=== PATIENT | female | born 1990 | race Caucasian/White ===

== ENCOUNTER 2016-04-08 21:06 | Emergency (ER) | payer OTHER ==
[2016-04-08] MEDS ORDERED: ONDANSETRON 4 MG ORAL DISINTEGRATING TAB (S0181) As Ordered ONE (23:16)
[2016-04-08] MEDS ORDERED: MECLIZINE 12.5 MG TAB As Ordered ONE (23:16)
[2016-04-08] MEDS ORDERED: diphenhydrAMINE 25 MG CAP As Ordered ONE (23:16)
[2016-04-08] MEDS ORDERED: NORCO 5/325MG TABLET (BULK) As Ordered ONE (23:16)
[2016-04-08] MEDS ORDERED: TETRACAINE 0.5% OPHTH SOLN 2 ML As Ordered ONE (23:33)
--- NOTE | 2016-04-09 00:55 | EDDOCDS ---
Physician Documentation [facility] Name: Eliana Tapia Age: 25 yrs Sex: Female : 1990 Arrival Date: 04/08/2016 Time: 21:06 Bed TR8 Private MD: NO PRIMARY PHYSICIAN, . Disposition: 04/08/16 23:09 Discharged to Home/Self Care. Impression: Acute frontal sinusitis. - Condition is Stable. - Discharge Instructions: Sinus Headache, Sinusitis, Adult, Vertigo. - Prescriptions for Meclizine 25 mg Oral Tablet - take 1 tablet by ORAL route every 8 hours As needed; 30 tablet. [place] 5- 325 mg Oral Tablet - take 1 tablet by ORAL route every 6 hours As needed MDD: 4 tabs; 12 tablet. ZOFRAN ODT 4 mg - dissolve 1 tablet by ORAL route 4 times per day As needed do not chew, do not swallow whole; 10 tablet. - Medication Reconciliation, Local Pharmacy Hours form. - Follow up: Private Physician; When: Call to arrange an appointment; Reason: Recheck today's complaints, Continuance of care. - Problem is new. - Symptoms are unchanged. Historical: - Allergies: No known drug Allergies; - Home Meds: 1. Augmentin 875-125 mg Oral tab 1 tab every 12 hours (Last dose: 04/08/2016 18:00) 2. Depo-Provera IM 3. Flonase 50 mcg/actuation Nasal spsn 1 spray once daily (Last dose: 04/08/2016) 4. Cough Syrup oral oral - PMHx: none; - PSHx: Tonsillectomy; Cholecystectomy; [place] teeth extractions; - Social history: Smoking status: Patient uses tobacco products, light tobacco smoker. No barriers to communication noted, The patient speaks fluent Divehi, Speaks appropriately for age. - Family history: Not pertinent. - : The pt / caregiver states he / she is not on anticoagulants. Home medication list is obtained from the patient. - Exposure Risk Screening:: None identified. 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 5 in. (165.10 cm) (R); 23:48 BP 150 / 84; Pulse 83; Resp 18; Temp 99.4; Pulse Ox 100% ; Pain 10/10; jlm 21:07 Body Mass Index 39.94 (108.86 kg, 165.10 cm) dd6 MDM: 23:03 Financial registration complete. kf3 23:04 [facility] Payment Agreement was scanned into [employer] and attached to record. kf3 23:05 HYDROcodone-acetaminophen 4 pack- 5 mg-325 mg 1 packets PO Per package directions; mo1 Dispense with patient. 1 po q4h prn for pain ordered. 23:06 diphenhydrAMINE 25 mg PO once ordered. mo1 23:06 Meclizine 25 mg PO once ordered. mo1 23:06 Ondansetron 4 mg PO once ordered. mo1 23:11 ED course: of patient extremely disrespectful to myself during exam of patient. mo1 pt's questioning care and plan of treatment as i was discussing with patient. 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 pt is stable, pt with obvious sinusitis and right AOM with likely associated vertigo . 23:43 ED course: Pt's intraocular pressure was 16. 'Swinging flashlight' test response was cs11 normal in each eye indicating no evidence of optic neuritis.. Administered Medications: 23:59 Drug: HYDROcodone-acetaminophen 4 pack- 1 packets [hydrocodone 5 mg-acetaminophen 325 cz mg tablet (1 tabs)] {Co-Signature: kmg1 (Vidhi Ferris RN).} Route: PO; 23:59 Drug: diphenhydrAMINE 25 mg [diphenhydramine 25 mg capsule (1 caps)] Route: PO; cz 23:59 Drug: Meclizine 25 mg [meclizine 12.5 mg tablet (2 tabs)] Route: PO; cz 23:59 Drug: Ondansetron 4 mg [ondansetron HCl 4 mg tablet (1 tabs)] Route: PO; cz Signatures: Vidhi Ferris RN RN km Farzad Braswell RN RN cz Saul Kee, Reg Reg kf3 Jonas Ko DO DO cs11 Jose Lancaster PA PA mo1 Vidhi Ferris RN kmg1 The chart was reviewed and I authenticate all verbal orders and agree with the evaluation and treatment provided.Attachments: 23:04 [facility] Payment Agreement kf3 MTDD
--- NOTE | 2016-04-09 00:55 | EDDOCDS ---
Nurse's Notes [facility] Name: Eliana Tapia Age: 25 yrs Sex: Female : 1990 Arrival Date: 04/08/2016 Time: 21:06 Bed TR8 Private MD: NO PRIMARY PHYSICIAN, . Diagnosis: Acute frontal sinusitis Presentation: 04/08 21:21 Presenting complaint: Patient states: Was seen yesterday for facial pressure. Was put kmg1 on Augmentin for early sinus infection. Right side of face severe pain. Nausea, dry heaves. Adult Sepsis Screening: The patient does not have new or worsening altered mentation. Patient's respiratory rate is less than 22. Systolic blood pressure is greater than 100. Patient has a qSOFA score of 0- Negative Sepsis Screen. Suicide/Homicide risk assessment- the patient denies having any suicidal and/or homicidal ideations and does not present with any other emotional, behavioral or mental health complaints. Status: Patient is not a production service manager or dependent. Transition of care: patient was not received from another setting of care. 21:21 Acuity: MARIBEL Level 4 [facility] 21:21 Method Of Arrival: Walkin/Carried/Asstd [facility] Triage Assessment: 21:25 General: Appears uncomfortable, Behavior is crying. Pain: Location: right eye, right kmg1 cheek, right ear, right congregational and right jaw Pain currently is 10 out of 10 on a pain scale. Quality of pain is described as throbbing. EENT: Reports pain in right eye, right cheek, right ear, right congregational and right jaw. 21:25 Pt Declines HIV testing. [facility] LIBRARY AIDE: 21:25 LMP N/A - Depo [facility] Historical: - Allergies: No known drug Allergies; - Home Meds: 1. Augmentin 875-125 mg Oral tab 1 tab every 12 hours (Last dose: 04/08/2016 18:00) 2. Depo-Provera IM 3. Flonase 50 mcg/actuation Nasal spsn 1 spray once daily (Last dose: 04/08/2016) 4. Cough Syrup oral oral - PMHx: none; - PSHx: Tonsillectomy; Cholecystectomy; [place] teeth extractions; - Social history: Smoking status: Patient uses tobacco products, light tobacco smoker. No barriers to communication noted, The patient speaks fluent Frisian, Speaks appropriately for age. - Family history: Not pertinent. - : The pt / caregiver states he / she is not on anticoagulants. Home medication list is obtained from the patient. - Exposure Risk Screening:: None identified. Screenin/16 00:53 Screening information is obtained from the patient. Fall risk: No risks identified. cz Assistance ADL's: requires no assistance with activities of daily living. Abuse/DV Screen: The patient / caregiver reports he/she is: not in a situation that causes fear, pain or injury. Nutritional screening: No deficits noted. home support is adequate. Assessment: 04/08 23:29 General: Pt and SO requesting to speak with nursing debone supervisor, this marketing writer notified sls1 nursing debone supervisor, and went into speak with them regarding notify debone supervisor. PT S/O stated he would speak with this marketing writer because " you are one of the good ones" stated they waited to be seen for a long time, and watched " a lot of other people walk in not in distress while she was crying her eyes out" reports being placed in triage room and waited even longer, states " not offered a blanket", states provider came into evaluate pt and did not listen to concerns over eye, states " concerned that pt may have same condition as sister who required a shunt". Chief Service Dispatcher asked what could be done to make the situation better and they asked to have eyes evaluated, pt moved to eye room and notified Dr Ko of situation, Dr Ko into evaluate pt. . Vital Signs: 21:07 BP 147 / 89; Pulse 109; Resp 18 S; Temp 98.5(O); Pulse Ox 100% on R/A; Weight 108.86 kg dd6 (M); Height 5 ft. 5 in. (165.10 cm) (R); 23:48 BP 150 / 84; Pulse 83; Resp 18; Temp 99.4; Pulse Ox 100% ; Pain 10/10; jlm 21:07 Body Mass Index 39.94 (108.86 kg, 165.10 cm) dd6 Vitals: 21:07 Log In Time: April 08, 2016 at 21:05. dd6 ED Course: 21:07 Patient visited by Hiro Chakraborty, [place]. dd6 21:07 NO PRIMARY PHYSICIAN, . is Private Physician. dd6 21:07 Patient moved to Waiting dd6 21:09 Patient moved to Pre RCE dd6 21:23 Triage Initiated kmg1 22:14 Patient moved to Triage 1 ar3 22:37 Jose Lancaster PA is PHCP. mo1 22:37 Jonas Ko DO is Attending Physician. mo1 22:51 Patient visited by Jose Lancaster PA. mo1 22:55 Patient name changed from Eliana\\S\\S\\S\\Regina\\S\\ to Eliana\\S\\Allegra\\S\\Regina. EDMS 23:04 [facility] Payment Agreement was scanned into [employer] and attached to record. kf3 23:16 Patient moved to PD2 / 27 jlm 23:24 Patient moved to I10 / 23 sls1 23:49 Patient visited by Shayna Davis, Molding Line Operator. jlm 04/09 00:05 Patient moved to TR8 cz 00:53 The patient / caregiver is instructed regarding the plan of care and ED course. cz 00:53 No IV's were initiated during this patient's visit. No procedures done that require cz assistance. Administered Medications: 04/08 23:59 Drug: HYDROcodone-acetaminophen 4 pack- 1 packets [hydrocodone 5 mg-acetaminophen 325 cz mg tablet (1 tabs)] {Co-Signature: kmg1 (Vidhi Ferris RN).} Route: PO; 23:59 Drug: diphenhydrAMINE 25 mg [diphenhydramine 25 mg capsule (1 caps)] Route: PO; cz 23:59 Drug: Meclizine 25 mg [meclizine 12.5 mg tablet (2 tabs)] Route: PO; cz 23:59 Drug: Ondansetron 4 mg [ondansetron HCl 4 mg tablet (1 tabs)] Route: PO; cz Order Results: There are currently no results for this order. Outcome: 23:09 Discharge ordered by Provider. mo1 04/09 00:52 Discharge Assessment: Patient awake, alert and oriented x 3. No cognitive and/or cz functional deficits noted. Patient verbalized understanding of disposition instructions. patient administered narcotics - no. The following High Risk Discharge criteria are identified: None. Discharged to home ambulatory, with significant other. Condition: stable. Discharge instructions given to patient, Instructed on discharge instructions, follow up and referral plans. medication usage, Demonstrated understanding of instructions, medications, Pt was receptive of discharge instructions/ teaching. Prescriptions given X 3. No special radiology studies were completed. Property :Personal belongings accompany Pt. 00:54 Patient left the ED. rae Signatures: Dispatcher [employer] EDMS Vidhi Ferris, RN RN kmg1 Farzad Braswell RN RN cz Saul Kee, Reg Reg kf3 Hiro Chakraborty, DIVER TENDER DIVER TENDER dd6 Ángela Busby, DIVER TENDER DIVER TENDER ar3 Alina Monroy, RN RN sls1 Jose Lancaster PA PA mo1 Shayna Davis, Molding Line Operator [facility] Vidhi Ferris RN kmg1 MTDD
--- NOTE | 2016-04-11 01:54 | EDDOCDS ---
Nurse's Notes [facility] Name: Eliana Tapia Age: 25 yrs Sex: Female : 1990 Arrival Date: 04/08/2016 Time: 21:06 Bed TR8 Private MD: NO PRIMARY PHYSICIAN, . Diagnosis: Acute frontal sinusitis Presentation: 04/08 21:21 Presenting complaint: Patient states: Was seen yesterday for facial pressure. Was put kmg1 on Augmentin for early sinus infection. Right side of face severe pain. Nausea, dry heaves. Adult Sepsis Screening: The patient does not have new or worsening altered mentation. Patient's respiratory rate is less than 22. Systolic blood pressure is greater than 100. Patient has a qSOFA score of 0- Negative Sepsis Screen. Suicide/Homicide risk assessment- the patient denies having any suicidal and/or homicidal ideations and does not present with any other emotional, behavioral or mental health complaints. Status: Patient is not a government services professional or dependent. Transition of care: patient was not received from another setting of care. 21:21 Acuity: [place]IBEL Level 4 [facility] [place]:21 Method Of Arrival: Walkin/Carried/Asstd [facility] Triage Assessment: 21:25 General: Appears uncomfortable, Behavior is crying. Pain: Location: right eye, right kmg1 cheek, right ear, right adventist and right jaw Pain currently is 10 out of 10 on a pain scale. Quality of pain is described as throbbing. EENT: Reports pain in right eye, right cheek, right ear, right adventist and right jaw. 21:25 Pt Declines HIV testing. 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 Augmentin 875-125 mg Oral tab 1 tab every 12 hours (Last dose: 04/08/2016 18:00) 2. Depo-Provera IM 3. Flonase 50 mcg/actuation Nasal spsn 1 spray once daily (Last dose: 04/08/2016) 4. Cough Syrup oral oral - PMHx: none; - PSHx: Tonsillectomy; Cholecystectomy; [place] teeth extractions; - Social history: Smoking status: Patient uses tobacco products, light tobacco smoker. No barriers to communication noted, The patient speaks fluent Amharic, Speaks appropriately for age. - Family history: Not pertinent. - : The pt / caregiver states he / she is not on anticoagulants. Home medication list is obtained from the patient. - Exposure Risk Screening:: None identified. Screenin/16 00:53 Screening information is obtained from the patient. Fall risk: No risks identified. cz Assistance ADL's: requires no assistance with activities of daily living. Abuse/DV Screen: The patient / caregiver reports he/she is: not in a situation that causes fear, pain or injury. Nutritional screening: No deficits noted. home support is adequate. Assessment: 04/08 23:29 General: Pt and SO requesting to speak with nursing broiler supervisor, this health underwriter notified sls1 nursing broiler supervisor, and went into speak with them regarding notify broiler supervisor. PT S/O stated he would speak with this health underwriter because " you are one of the good ones" stated they waited to be seen for a long time, and watched " a lot of other people walk in not in distress while she was crying her eyes out" reports being placed in triage room and waited even longer, states " not offered a blanket", states provider came into evaluate pt and did not listen to concerns over eye, states " concerned that pt may have same condition as sister who required a shunt". Biscuit Factory Worker asked what could be done to make the situation better and they asked to have eyes evaluated, pt moved to eye room and notified Dr Ko of situation, Dr Ko into evaluate pt. . Vital Signs: 21:07 BP 147 / 89; Pulse 109; Resp 18 S; Temp 98.5(O); Pulse Ox 100% on R/A; Weight 108.86 kg dd6 (M); Height 5 ft. 5 in. (165.10 cm) (R); 23:48 BP 150 / 84; Pulse 83; Resp 18; Temp 99.4; Pulse Ox 100% ; Pain 10/10; jlm 21:07 Body Mass Index 39.94 (108.86 kg, 165.10 cm) dd6 Vitals: 21:07 Log In Time: April 08, 2016 at 21:05. dd6 ED Course: 21:07 Patient visited by Hiro Chakraborty, [place]. dd6 21:07 NO PRIMARY PHYSICIAN, . is Private Physician. dd6 21:07 Patient moved to Waiting dd6 21:09 Patient moved to Pre RCE dd6 21:23 Triage Initiated kmg1 22:14 Patient moved to Triage 1 ar3 22:37 Jose Lancaster PA is PHCP. mo1 22:37 Jonas Ko DO is Attending Physician. mo1 22:51 Patient visited by Jose Lancaster PA. mo1 22:55 Patient name changed from Eliana\\S\\S\\S\\Regina\\S\\ to Eliana\\S\\Allegra\\S\\Regina. EDMS 23:04 [facility] Payment Agreement was scanned into [email or web address] and attached to record. kf3 23:16 Patient moved to PD2 / 27 jlm 23:24 Patient moved to I10 / 23 sls1 23:49 Patient visited by Shayna Davis, Rug Renovator. jlm 04/09 00:05 Patient moved to TR8 cz 00:53 The patient / caregiver is instructed regarding the plan of care and ED course. cz 00:53 No IV's were initiated during this patient's visit. No procedures done that require cz assistance. 11:58 T-Sheet-- Draft Copy was scanned into [email or web address] and attached to record. gb Administered Medications: 04/08 23:59 Drug: HYDROcodone-acetaminophen 4 pack- 1 packets [hydrocodone 5 mg-acetaminophen 325 cz mg tablet (1 tabs)] {Co-Signature: kmg1 (Vidhi Ferris RN).} Route: PO; 23:59 Drug: diphenhydrAMINE 25 mg [diphenhydramine 25 mg capsule (1 caps)] Route: PO; cz 23:59 Drug: Meclizine 25 mg [meclizine 12.5 mg tablet (2 tabs)] Route: PO; cz 23:59 Drug: Ondansetron 4 mg [ondansetron HCl 4 mg tablet (1 tabs)] Route: PO; cz Order Results: There are currently no results for this order. Outcome: 23:09 Discharge ordered by Provider. mo1 04/09 00:52 Discharge Assessment: Patient awake, alert and oriented x 3. No cognitive and/or cz functional deficits noted. Patient verbalized understanding of disposition instructions. patient administered narcotics - no. The following High Risk Discharge criteria are identified: None. Discharged to home ambulatory, with significant other. Condition: stable. Discharge instructions given to patient, Instructed on discharge instructions, follow up and referral plans. medication usage, Demonstrated understanding of instructions, medications, Pt was receptive of discharge instructions/ teaching. Prescriptions given X 3. No special radiology studies were completed. Property :Personal belongings accompany Pt. 00:54 Patient left the ED. cz Signatures: Dispatcher [employer] EDMS Vidhi Ferris, CATHERINE RN kmg1 Farzad Braswell RN RN cz Radha Borjas, Reg Reg gb Saul Kee, Reg Reg kf3 Hiro Chakraborty, MANAGER SERVICES MANAGER SERVICES dd6 Ángela Busby, MANAGER SERVICES MANAGER SERVICES ar3 Alina Monroy RN RN sls1 Jose Lancaster PA PA mo1 Shayna Davis, Rug Renovator Unit [facility] Vidhi Ferris RN kmg1 Chart Complete MTDD
--- NOTE | 2016-04-11 01:54 | EDDOCDS ---
Physician Documentation [facility] Name: Eliana Tapia Age: 25 yrs Sex: Female : 1990 Arrival Date: 04/08/2016 Time: 21:06 Bed TR8 Private MD: NO PRIMARY PHYSICIAN, . Disposition: 04/08/16 23:09 Discharged to Home/Self Care. Impression: Acute frontal sinusitis. - Condition is Stable. - Discharge Instructions: Sinus Headache, Sinusitis, Adult, Vertigo. - Prescriptions for Meclizine 25 mg Oral Tablet - take 1 tablet by ORAL route every 8 hours As needed; 30 tablet. [place] [facility] 5- 325 mg Oral Tablet - take 1 tablet by ORAL route every 6 hours As needed MDD: 4 tabs; 12 tablet. ZOFRAN ODT 4 mg - dissolve 1 tablet by ORAL route 4 times per day As needed do not chew, do not swallow whole; 10 tablet. - Medication Reconciliation, Local Pharmacy Hours form. - Follow up: Private Physician; When: Call to arrange an appointment; Reason: Recheck today's complaints, Continuance of care. - Problem is new. - Symptoms are unchanged. Historical: - Allergies: No known drug Allergies; - Home Meds: 1. Augmentin 875-125 mg Oral tab 1 tab every 12 hours (Last dose: 04/08/2016 18:00) 2. Depo-Provera IM 3. Flonase 50 mcg/actuation Nasal spsn 1 spray once daily (Last dose: 04/08/2016) 4. Cough Syrup oral oral - PMHx: none; - PSHx: Tonsillectomy; Cholecystectomy; [place] teeth extractions; - Social history: Smoking status: Patient uses tobacco products, light tobacco smoker. No barriers to communication noted, The patient speaks fluent Sinhala, Speaks appropriately for age. - Family history: Not pertinent. - : The pt / caregiver states he / she is not on anticoagulants. Home medication list is obtained from the patient. - Exposure Risk Screening:: None identified. 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 5 in. (165.10 cm) (R); 23:48 BP 150 / 84; Pulse 83; Resp 18; Temp 99.4; Pulse Ox 100% ; Pain 10/10; jlm 21:07 Body Mass Index 39.94 (108.86 kg, 165.10 cm) dd6 MDM: 23:03 Financial registration complete. kf3 23:04 [facility] Payment Agreement was scanned into [employer] and attached to record. kf3 23:05 HYDROcodone-acetaminophen 4 pack- 5 mg-325 mg 1 packets PO Per package directions; mo1 Dispense with patient. 1 po q4h prn for pain ordered. 23:06 diphenhydrAMINE 25 mg PO once ordered. mo1 23:06 Meclizine 25 mg PO once ordered. mo1 23:06 Ondansetron 4 mg PO once ordered. mo1 23:11 ED course: of patient extremely disrespectful to myself during exam of patient. mo1 pt's questioning care and plan of treatment as i was discussing with patient. 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 pt is stable, pt with obvious sinusitis and right AOM with likely associated vertigo . 23:43 ED course: Pt's intraocular pressure was 16. 'Swinging flashlight' test response was cs11 normal in each eye indicating no evidence of optic neuritis.. 04/09 11:58 T-Sheet-- Draft Copy was scanned into [employer] and attached to record. gb Administered Medications: 04/08 23:59 Drug: HYDROcodone-acetaminophen 4 pack- 1 packets [hydrocodone 5 mg-acetaminophen 325 cz mg tablet (1 tabs)] {Co-Signature: kmg1 (Vidhi Ferris RN).} Route: PO; 23:59 Drug: diphenhydrAMINE 25 mg [diphenhydramine 25 mg capsule (1 caps)] Route: PO; cz 23:59 Drug: Meclizine 25 mg [meclizine 12.5 mg tablet (2 tabs)] Route: PO; cz 23:59 Drug: Ondansetron 4 mg [ondansetron HCl 4 mg tablet (1 tabs)] Route: PO; cz Signatures: Vdihi Ferris RN RN kmg1 Farzad Braswell RN RN cz Radha Borjas, Reg Reg gb Saul Kee, Reg Reg kf3 Jonas Ko, DO cs11 OJose Marie PA PA mo1 Vidhi Ferris RN kmg1 The chart was reviewed and I authenticate all verbal orders and agree with the evaluation and treatment provided.Attachments: 23:04 [facility] Payment Agreement kf3 04/09 11:58 T-Sheet-- Draft Copy gb Chart Complete MTDD
--- NOTE | 2016-04-11 01:54 | EDDOCDS ---
Physician Documentation [facility] Name: Eliana Tapia Age: 25 yrs Sex: Female : 1990 Arrival Date: 04/08/2016 Time: 21:06 Bed TR8 Private MD: NO PRIMARY PHYSICIAN, . Disposition: 04/08/16 23:09 Discharged to Home/Self Care. Impression: Acute frontal sinusitis. - Condition is Stable. - Discharge Instructions: Sinus Headache, Sinusitis, Adult, Vertigo. - Prescriptions for Meclizine 25 mg Oral Tablet - take 1 tablet by ORAL route every 8 hours As needed; 30 tablet. Gardiner 5- 325 mg Oral Tablet - take 1 tablet by ORAL route every 6 hours As needed MDD: 4 tabs; 12 tablet. ZOFRAN ODT 4 mg - dissolve 1 tablet by ORAL route 4 times per day As needed do not chew, do not swallow whole; 10 tablet. - Medication Reconciliation, Local Pharmacy Hours form. - Follow up: Private Physician; When: Call to arrange an appointment; Reason: Recheck today's complaints, Continuance of care. - Problem is new. - Symptoms are unchanged. Historical: - Allergies: No known drug Allergies; - Home Meds: 1. Augmentin 875-125 mg Oral tab 1 tab every 12 hours (Last dose: 04/08/2016 18:00) 2. Depo-Provera IM 3. Flonase 50 mcg/actuation Nasal spsn 1 spray once daily (Last dose: 04/08/2016) 4. Cough Syrup oral oral - PMHx: none; - PSHx: Tonsillectomy; Cholecystectomy; [place] teeth extractions; - Social history: Smoking status: Patient uses tobacco products, light tobacco smoker. No barriers to communication noted, The patient speaks fluent Chinese, Speaks appropriately for age. - Family history: Not pertinent. - : The pt / caregiver states he / she is not on anticoagulants. Home medication list is obtained from the patient. - Exposure Risk Screening:: None identified. 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 5 in. (165.10 cm) (R); 23:48 BP 150 / 84; Pulse 83; Resp 18; Temp 99.4; Pulse Ox 100% ; Pain 10/10; jlm 21:07 Body Mass Index 39.94 (108.86 kg, 165.10 cm) dd6 MDM: 23:03 Financial registration complete. kf3 23:04 [facility] Payment Agreement was scanned into Info and attached to record. kf3 23:05 HYDROcodone-acetaminophen 4 pack- 5 mg-325 mg 1 packets PO Per package directions; mo1 Dispense with patient. 1 po q4h prn for pain ordered. 23:06 diphenhydrAMINE 25 mg PO once ordered. mo1 23:06 Meclizine 25 mg PO once ordered. mo1 23:06 Ondansetron 4 mg PO once ordered. mo1 23:11 ED course: of patient extremely disrespectful to myself during exam of patient. mo1 pt's questioning care and plan of treatment as i was discussing with patient. 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 pt is stable, pt with obvious sinusitis and right AOM with likely associated vertigo . 23:43 ED course: Pt's intraocular pressure was 16. 'Swinging flashlight' test response was cs11 normal in each eye indicating no evidence of optic neuritis.. 04/09 11:58 T-Sheet-- Draft Copy was scanned into Info and attached to record. gb Administered Medications: 04/08 23:59 Drug: HYDROcodone-acetaminophen 4 pack- 1 packets [hydrocodone 5 mg-acetaminophen 325 cz mg tablet (1 tabs)] {Co-Signature: kmg1 (Vidhi Ferris RN).} Route: PO; 23:59 Drug: diphenhydrAMINE 25 mg [diphenhydramine 25 mg capsule (1 caps)] Route: PO; cz 23:59 Drug: Meclizine 25 mg [meclizine 12.5 mg tablet (2 tabs)] Route: PO; cz 23:59 Drug: Ondansetron 4 mg [ondansetron HCl 4 mg tablet (1 tabs)] Route: PO; cz Signatures: Vidhi Ferris RN RN kmg1 Farzad Braswell RN RN cz Radha Borjas, Reg Reg gb Saul Kee, Reg Reg kf3 Jonas Ko, DO cs11 OJose Marie PA PA mo1 Vidhi Ferris RN kmg1 The chart was reviewed and I authenticate all verbal orders and agree with the evaluation and treatment provided.Attachments: 23:04 [facility] Payment Agreement kf3 04/09 11:58 T-Sheet-- Draft Copy gb Chart Complete MTDD
== END 2016-04-09 00:54 | disposition home or self-care (01) ==
LOC: M ED 21:06
DX: J01.00 Acute maxillary sinusitis, unspecified (principal); H66.91 Otitis media, unspecified, right ear; R51 Headache; R11.2 Nausea with vomiting, unspecified; F17.210 Nicotine dependence, cigarettes, uncomplicated

== ENCOUNTER → 2016-09-21 | Outpatient (CLI) | payer OTHER ==
[~2016-09-21] MED LIST: BENA25TA10 PO; CETI10TA PO; KEFL500C17 PO; LORA10CA PO; PRED20TA PO
[2016-09-21 17:14] LABS: MEAN CORPUSCULAR HEMOGLOBIN 29.2 pg (27.0-33.0); MEAN CORPUSCULAR HGB CONC 33.5 g/dl (32.0-36.5); MEAN CORPUSCULAR VOLUME 87.1 fl (80.0-96.0); WHITE BLOOD COUNT 9.2 K/mm3 (4.0-10.0)
[2016-09-21 18:07] LABS: THYROID PEROXIDASE ANTIBODY < 28.0 U/ML (<60.0)
[2016-09-21 18:32] LABS: ALBUMIN 3.7 GM/DL (3.2-5.2); ALBUMIN/GLOBULIN RATIO 1.06 (1.00-1.93); ALKALINE PHOSPHATASE 88 U/L (45-117); ALT/SGPT 27 U/L (12-78); ANION GAP 10 MEQ/L (8-16); AST/SGOT 12 U/L (15-37); BILIRUBIN,TOTAL 0.3 MG/DL (0.2-1.0); BLOOD UREA NITROGEN 4 MG/DL (7-18); CARBON DIOXIDE LEVEL 22 MEQ/L (21-32); CHLORIDE LEVEL 110 MEQ/L (98-107); CREATININE FOR GFR 0.75 MG/DL (0.55-1.02); GLOMERULAR FILTRATION RATE > 60.0 (>60); GLUCOSE, FASTING 107 MG/DL (70-105); POTASSIUM SERUM 3.5 MEQ/L (3.5-5.1); SODIUM LEVEL 142 MEQ/L (136-145); THYROXINE (T4) 10.3 UG/DL (4.5-12.0); TOTAL PROTEIN 7.2 GM/DL (6.4-8.2)
[2016-09-29 00:08] LABS: IGE RECEPTOR ABY 1 2.7 (<10)
== END ==
LOC: M LRY 14:16
PROVIDERS: ATTEND Allergy & Immunology Allergy
DX: L50.1 Idiopathic urticaria (principal)

== ENCOUNTER → 2016-10-25 | Outpatient (REF) | payer OTHER ==
[2016-10-28 00:06] LABS: Lyme Disease IgG/IgM Antibodie <0.91 ISR (0.00-0.90); Lyme Disease IgM Ab Quantitati <0.80 index (0.00-0.79)
== END ==
LOC: M SFHCLERA 13:48
PROVIDERS: ATTEND Nurse Practitioner Family
DX: A69.20 Lyme disease, unspecified (principal)

== ENCOUNTER → 2016-11-05 | Outpatient (CLI) | payer OTHER | LOC: M LRY 12:55 | PROVIDERS: ATTEND Physician Assistant | DX: Z00.00 Encounter for general adult medical examination without abnormal findings (principal); L50.0 Allergic urticaria ==

== ENCOUNTER 2016-11-18 00:53 | Emergency (ER) | payer OTHER ==
[~2016-11-18] VITALS: Ht 165.1 cm; Wt 113.6 kg
[2016-11-18] MEDS ORDERED: LORA10CA PO (01:00)
[2016-11-18] MEDS ORDERED: BENA25TA10 PO (01:00)
[2016-11-18] MEDS ORDERED: CETI10TA PO (01:00)
[2016-11-18] MEDS ORDERED: dexameTHASONE 20 MG/5 ML VIAL (J1100) IV ONE (02:45)
[2016-11-18] MEDS ORDERED: ceFAZolin SOD 1 GM in D5W MINI-BAG PLUS 50 ML IV ONE (02:45)
--- NOTE | 2016-11-18 03:00 | REPUSA ---
Clinical history: evaluate abscess/mass. Findings: Real-time ultrasound imaging of the right antecubital region was performed. Normal heteroge neous fibroglandular tissue is noted. No focal defined mass or cystic lesion is appreciated. No evide nce of calcifications are appreciated. No other gross abnormalities. Impression: No focal abnormality.
[2016-11-18] MEDS ORDERED: PRED20TA PO (03:37)
[2016-11-18] MEDS ORDERED: KEFL500C17 PO (03:37)
[2016-11-18 03:40] LABS: BASO % 0.3 % (0.0-1.0); EOS # 0.4 K/mm3 (0.0-0.50); EOS % 2.6 % (0.0-3.0); LARGE UNSTAINED CELL # 0.2 K/mm3 (0.0-0.4); LYMPH # 3.5 K/mm3 (1.5-6.5); MEAN CORPUSCULAR HGB CONC 32.6 g/dl (32.0-36.5); MEAN CORPUSCULAR VOLUME 82.8 fl (80.0-96.0); MONO # 0.7 K/mm3 (0.0-0.8); MONO % 4.2 % (0.0-5.0); NEUTROPHILS # 10.8 K/mm3 (1.8-7.7); NEUTROPHILS % 69.9 % (36.0-66.0); PLATELET COUNT, AUTOMATED 429 k/mm3 (150-450); RED CELL DISTRIBUTION WIDTH 14.4 % (11.5-14.5); WHITE BLOOD COUNT 15.4 K/mm3 (4.0-10.0)
[2016-11-18 04:33] VITALS: BP 114/76
== END 2016-11-18 04:37 | disposition home or self-care (01) ==
LOC: M ED 00:53
DX: R23.4 Changes in skin texture (principal); Z79.899 Other long term (current) drug therapy; F17.210 Nicotine dependence, cigarettes, uncomplicated
CPT/HCPCS: 76882; 85025; 87040; 96374; 96375; 99283; J0690; J1100

== ENCOUNTER → 2017-05-15 | Outpatient (REF) | payer OTHER ==
[2017-05-15 20:57] LABS: INFLUENZA A AMPLIFICATION POSITIVE (NEGATIVE); INFLUENZA B AMPLIFICATION NEGATIVE (NEGATIVE)
== END ==
LOC: M LAB REF 09:37
DX: J11.1 Influenza due to unidentified influenza virus with other respiratory manifestations (principal)

== ENCOUNTER 2018-11-22 19:54 | Emergency (ER) | payer MEDICAID, OTHER, SELFPAY ==
[~2018-11-22] VITALS: Ht 165.1 cm; Wt 120.0 kg
[2018-11-22 21:20] LABS: BASO % 0.4 % (0.0-1.0); EOS # 0.2 10^3/uL (0.0-0.50); EOS % 1.8 % (0.0-3.0); HEMATOCRIT 37.1 % (36.0-47.0); HEMOGLOBIN 12.3 g/dl (12.0-15.5); LYMPH # 3.4 10^3/uL (1.5-6.5); LYMPH % 30.7 % (24.0-44.0); MEAN CORPUSCULAR HGB CONC 33.2 g/dl (32.0-36.5); MEAN CORPUSCULAR VOLUME 90.5 fl (80.0-96.0); MONO # 0.8 10^3/uL (0.0-0.8); MONO % 7.1 % (0.0-5.0); NEUTROPHILS # 6.5 10^3/uL (1.8-7.7); NEUTROPHILS % 59.6 % (36.0-66.0); PLATELET COUNT, AUTOMATED 314 10^3/uL (150-450); WHITE BLOOD COUNT 10.9 10^3/uL (4.0-10.0)
[2018-11-22 21:42] LABS: ALBUMIN 3.5 GM/DL (3.2-5.2); ALT/SGPT 30 U/L (12-78); BILIRUBIN,DIRECT < 0.1 MG/DL (0.0-0.2); BILIRUBIN,TOTAL 0.1 MG/DL (0.2-1.0); BLOOD UREA NITROGEN 9 MG/DL (7-18); CALCIUM LEVEL 8.9 MG/DL (8.5-10.1); CARBON DIOXIDE LEVEL 28 MEQ/L (21-32); CHLORIDE LEVEL 107 MEQ/L (98-107); GLOMERULAR FILTRATION RATE > 60.0 (>60); GLUCOSE, FASTING 99 MG/DL (70-100); POTASSIUM SERUM 4.2 MEQ/L (3.5-5.1); SODIUM LEVEL 141 MEQ/L (136-145); TOTAL PROTEIN 7.1 GM/DL (6.4-8.2)
[2018-11-22] MEDS ORDERED: NAPR-837 PO (22:33)
[2018-11-22] MEDS ORDERED: NAPROXEN 250 MG TAB PO ONE (22:45)
[2018-11-22 22:48] VITALS: BP 125/76
--- NOTE | 2018-11-23 08:30 | REP ---
Clinical: Right-sided chest pain . Comparison: None . Technique: PA and lateral. Findings: The mediastinum and cardiac silhouette are normal. The lung gruber are clear and without acute consolidation, effusion, or pneumothorax. The skeletal structures are intact and normal. Impression: 1. No acute cardiopulmonary process. Electronically Signed by Rickie Zapata MD 11/23/2018 08:22 A
== END 2018-11-22 22:51 | disposition home or self-care (01) ==
LOC: M ED 19:54
DX: R09.1 Pleurisy (principal)

== ENCOUNTER 2019-02-25 23:56 | Emergency (ER) | payer MEDICAID ==
[~2019-02-25] VITALS: Ht 165.1 cm; Wt 118.2 kg
[~2019-02-25 23:56] MED LIST changes: +NAPR-837 PO
[2019-02-26] MEDS ORDERED: KETOROLAC 30 MG/ML VIAL (J1885) IV ONE (00:30)
[2019-02-26 01:29] LABS: BASO # 0.1 10^3/uL (0.0-0.2); BASO % 0.4 % (0.0-1.0); EOS # 0.2 10^3/uL (0.0-0.5); HEMATOCRIT 38.7 % (36.0-47.0); HEMOGLOBIN 12.5 g/dl (12.0-15.5); LYMPH # 3.8 10^3/uL (1.5-5.0); LYMPH % 26.4 % (24.0-44.0); MEAN CORPUSCULAR HEMOGLOBIN 29.6 pg (27.0-33.0); MEAN CORPUSCULAR HGB CONC 32.3 g/dl (32.0-36.5); MEAN CORPUSCULAR VOLUME 91.5 fl (80.0-96.0); NEUTROPHILS # 9.3 10^3/uL (1.5-8.5); NEUTROPHILS % 64.8 % (36.0-66.0); PLATELET COUNT, AUTOMATED 321 10^3/uL (150-450); RED BLOOD COUNT 4.23 10^6/uL (4.00-5.40); WHITE BLOOD COUNT 14.3 10^3/uL (4.0-10.0)
[2019-02-26 02:03] LABS: ALBUMIN 2.4 GM/DL (3.2-5.2); ALT/SGPT 24 U/L (12-78); BILIRUBIN,DIRECT < 0.1 MG/DL (0.0-0.2); BILIRUBIN,TOTAL 0.2 MG/DL (0.2-1.0); BLOOD UREA NITROGEN 7 MG/DL (7-18); CALCIUM LEVEL 6.3 MG/DL (8.5-10.1); CARBON DIOXIDE LEVEL 21 MEQ/L (21-32); CHLORIDE LEVEL 117 MEQ/L (98-107); CREATININE FOR GFR 0.47 MG/DL (0.55-1.30); GLOMERULAR FILTRATION RATE > 60.0 (>60); GLUCOSE, FASTING 79 MG/DL (70-100); LIPASE 75 U/L (73-393); SODIUM LEVEL 144 MEQ/L (136-145); TOTAL PROTEIN 4.9 GM/DL (6.4-8.2)
[2019-02-26] MEDS ORDERED: ISOVUE-370 76% 100ML VIAL (Q9967) As Ordered ONE (02:07)
[2019-02-26] MEDS ORDERED: POTASSIUM CHLORIDE 10 MEQ SR TABLET PO ONE (02:30)
[2019-02-26 03:37] VITALS: BP 122/72
--- NOTE | 2019-02-26 10:02 | REP ---
CT ABDOMEN AND PELVIS WITH IV CONTRAST: TECHNIQUE: Axial contrast enhanced images from the lung bases to the pubic symphysis using 100 mL Isovue 370 intravenous contrast material with multiplanar reformations. Visualized lung bases are clear. The liver is enlarged with a length of approximately 19 cm. No liver mass is seen. The patient has had a prior cholecystectomy. There is no intrahepatic or extrahepatic biliary dilatation. The spleen is normal in size. Adrenal glands are normal. Pancreas demonstrates no mass. Kidneys demonstrate no abnormality with no hydronephrosis. Abdominal aorta is normal in caliber with no aneurysm. There are scattered subcentimeter periaortic lymph nodes. No adenopathy is seen. There is no free air or free fluid. There is no bowel wall thickening. The appendix is normal. No pelvic mass is seen. Urinary bladder is not well distended and not well evaluated. IMPRESSION: Mild hepatomegaly. Status post cholecystectomy without biliary dilatation. No free air or free fluid or other acute finding. No evidence of appendicitis. Preliminary report provided by [facility] at the time of the exam. Electronically Signed by Sergio Leon MD 02/26/2019 12:47 P
== END 2019-02-26 03:39 | disposition home or self-care (01) ==
LOC: M ED 23:56
DX: R10.9 Unspecified abdominal pain (principal); F17.200 Nicotine dependence, unspecified, uncomplicated; E66.9 Obesity, unspecified
CPT/HCPCS: 74177; 80048; 80076; 81001; 83690; 84702; 85025; 96374; 99283; 99284; J1885; Q9967

== ENCOUNTER → 2019-05-06 | Outpatient (REF) | payer OTHER | LOC: M LAB REF 16:21 | PROVIDERS: ATTEND Physician Assistant | DX: R50.9 Fever, unspecified (principal) ==

== ENCOUNTER 2019-06-26 22:47 | Emergency (ER) | payer OTHER ==
[~2019-06-26] VITALS: Ht 165.1 cm; Wt 123.7 kg
[2019-06-26] MEDS ORDERED: ONDANSETRON 4MG/2ML VIAL (J2405) IV ONE (23:15)
[2019-06-26] MEDS ORDERED: PANTOPRAZOLE 40MG INJ (PROTONIX) (C9113) IV ONE (23:15)
[2019-06-26] MEDS ORDERED: NS 1,000 ML IV ONE (23:15)
[2019-06-26 23:32] LABS: HEMATOCRIT 38.9 % (36.0-47.0); HEMOGLOBIN 13.2 g/dl (12.0-15.5); MEAN CORPUSCULAR HEMOGLOBIN 30.3 pg (27.0-33.0); MEAN CORPUSCULAR HGB CONC 33.9 g/dl (32.0-36.5); MEAN CORPUSCULAR VOLUME 89.4 fl (80.0-96.0); PLATELET COUNT, AUTOMATED 359 10^3/uL (150-450); RED BLOOD COUNT 4.35 10^6/uL (4.00-5.40); WHITE BLOOD COUNT 14.5 10^3/uL (4.0-10.0)
[2019-06-26 23:54] LABS: ALBUMIN 3.8 GM/DL (3.2-5.2); ALT/SGPT 34 U/L (12-78); BILIRUBIN,DIRECT < 0.1 MG/DL (0.0-0.2); BILIRUBIN,TOTAL 0.3 MG/DL (0.2-1.0); BLOOD UREA NITROGEN 9 MG/DL (7-18); CALCIUM LEVEL 9.2 MG/DL (8.5-10.1); CARBON DIOXIDE LEVEL 27 MEQ/L (21-32); CHLORIDE LEVEL 106 MEQ/L (98-107); CREATININE FOR GFR 0.76 MG/DL (0.55-1.30); GLOMERULAR FILTRATION RATE > 60.0 (>60); GLUCOSE, FASTING 96 MG/DL (70-100); LIPASE 116 U/L (73-393); POTASSIUM SERUM 3.7 MEQ/L (3.5-5.1); SODIUM LEVEL 137 MEQ/L (136-145); TOTAL PROTEIN 7.7 GM/DL (6.4-8.2)
[2019-06-26 23:58] LABS: HCG, SERUM QUALITATIVE NEGATIVE (NEGATIVE)
[2019-06-27 00:04] LABS: EOSINOPHILS 3 % (0-3); LYMPHOCYTES 26 % (16-44); MONOCYTES 5 % (0-5); NEUTROPHILS 66 % (28-66)
[2019-06-27 00:05] LABS: PLATELET ESTIMATE NORMAL (NORMAL)
--- NOTE | 2019-06-27 00:26 | REPVR ---
PROCEDURE INFORMATION: Exam: CT Abdomen And Pelvis Without Contrast Exam date and time: 06/26/2019 11:03 PM Age: 28 years old Clinical indication: Abdominal pain; Flank; Left; Additional info: Luq pain TECHNIQUE: Imaging protocol: Computed tomography of the abdomen and pelvis without contrast. Radiation optimization: All CT scans at this facility use at least one of these dose optimization techniques: automated exposure control; mA and/or kV adjustment per patient size (includes targeted exams where dose is matched to clinical indication); or iterative reconstruction. COMPARISON: CT ABD/PEL W/IV CONTRAST ONLY 02/26/2019 2:11 AM FINDINGS: Liver: The liver at mid clavicular line measures 20.1 cm. Gallbladder and bile ducts: Status post cholecystectomy. Pancreas: Normal. No ductal dilation. Spleen: Normal. No splenomegaly. Adrenals: Normal. No mass. Kidneys and ureters: Normal. No hydronephrosis. Stomach and bowel: Unremarkable. No obstruction. No mucosal thickening. Appendix: A normal appendix is seen. Intraperitoneal space: Unremarkable. No free air. No significant fluid collection. Vasculature: Unremarkable. No abdominal aortic aneurysm. Lymph nodes: Unremarkable. No enlarged lymph nodes. Bladder: Unremarkable as visualized. Reproductive: Unremarkable as visualized. Bones/joints: Unremarkable. No acute fracture. Soft tissues: Minimal fat filled umbilical hernia. IMPRESSION: 1. There has been little change from 02/26/2019. No interval renal or ureteral calculi are evident and there is no evidence of obstructive uropathy. 2. Status post cholecystectomy. 3. Hepatomegaly. Electronically signed by: Arnaldo Davis On 06/27/2019 00:25:51 AM
[2019-06-27] MEDS ORDERED: MACR100C43 PO (00:33)
[2019-06-27] MEDS ORDERED: PYRI1TAB5 PO (00:34)
[2019-06-27 00:41] VITALS: BP 129/72
[2019-06-27] MEDS ORDERED: NITROFURANTOIN (MACROBID) 100 MG CAP PO ONE (00:45)
[2019-06-27] MEDS ORDERED: PHENAZOPYRIDINE 100 MG TAB PO ONE (00:45)
== END 2019-06-27 00:48 | disposition home or self-care (01) ==
LOC: M ED 22:47
DX: N39.0 Urinary tract infection, site not specified (principal); F17.200 Nicotine dependence, unspecified, uncomplicated; R16.0 Hepatomegaly, not elsewhere classified
CPT/HCPCS: 74176; 80048; 80076; 81001; 83690; 84703; 85025; 87086; 96361; 96374; 96375; 99284; C9113; J2405

== ENCOUNTER 2022-02-17 02:01 | Emergency (ER) | payer OTHER ==
[~2022-02-17] VITALS: Ht 165.1 cm; Wt 110.7 kg
[~2022-02-17 02:01] MED LIST changes: +MACR100C43 PO; +PYRI1TAB5 PO
[2022-02-17 07:49] LABS: BASO # 0.1 10^3/uL (0.0-0.2); BASO % 0.4 % (0.0-1.0); EOS # 0.2 10^3/uL (0.0-0.5); EOS % 1.4 % (0.0-3.0); HEMATOCRIT 40.5 % (36.0-47.0); HEMOGLOBIN 13.4 g/dl (12.0-15.5); LYMPH # 3.8 10^3/uL (1.5-5.0); LYMPH % 28.9 % (24.0-44.0); MEAN CORPUSCULAR HEMOGLOBIN 30.5 pg (27.0-33.0); MEAN CORPUSCULAR HGB CONC 33.1 g/dl (32.0-36.5); MEAN CORPUSCULAR VOLUME 92.3 fl (80.0-96.0); MONO # 1.1 10^3/uL (0.0-0.8); MONO % 8.2 % (2.0-8.0); NEUTROPHILS % 60.8 % (36.0-66.0); PLATELET COUNT, AUTOMATED 318 10^3/uL (150-450); RED BLOOD COUNT 4.39 10^6/uL (4.00-5.40); WHITE BLOOD COUNT 13.2 10^3/uL (4.0-10.0)
[2022-02-17 08:02] LABS: PARTIAL THROMBOPLASTIN TIME 30.2 SECONDS (24.8-34.2); PROTHROMBIN TIME 13.4 SECONDS (12.5-14.5)
[2022-02-17 08:18] LABS: RSV AMPLIFICATION NEGATIVE (NEGATIVE)
[2022-02-17 08:21] LABS: ALBUMIN 3.9 G/DL (3.2-5.2); ALT/SGPT 26 U/L (7.0-40); BILIRUBIN,DIRECT 0.1 MG/DL (<0.4); BILIRUBIN,TOTAL 0.4 MG/DL (0.3-1.2); BLOOD UREA NITROGEN 7 MG/DL (9-23); CALCIUM LEVEL 9.2 MG/DL (8.5-10.1); CARBON DIOXIDE LEVEL 25 MMOL/L (20-31); CHLORIDE LEVEL 106 MMOL/L (98-107); CK-MB VALUE MASS < 1.0 NG/ML (<3.6); CPK CREATINE PHOSPHOKINASE 116 U/L (34-145); CREATININE FOR GFR 0.67 MG/DL (0.55-1.30); GLOMERULAR FILTRATION RATE > 60.0 (>60); GLUCOSE, FASTING 93 MG/DL (60-100); LIPASE 30 U/L (12-53); MB/CK RELATIVE INDEX 0.86 (< OR =4); POTASSIUM SERUM 4.1 MMOL/L (3.5-5.1); SODIUM LEVEL 141 MMOL/L (136-145); TOTAL PROTEIN 6.8 G/DL (5.7-8.2)
[2022-02-17] MEDS ORDERED: KETOROLAC 30 MG/ML 1ML VIAL IV ONE (08:45)
[2022-02-17] MEDS ORDERED: ONDANSETRON 4MG 2ML VIAL As Ordered ONE (09:13)
[2022-02-17] MEDS ORDERED: ONDANSETRON 4MG 2ML VIAL IV ONE (09:20)
[2022-02-17 09:42] LABS: CK-MB VALUE MASS < 1.0 NG/ML (<3.6); CPK CREATINE PHOSPHOKINASE 112 U/L (34-145); MB/CK RELATIVE INDEX 0.89 (< OR =4)
[2022-02-17] MEDS ORDERED: KETO10TAB PO (10:08)
[2022-02-17] MEDS ORDERED: OMEP40CA4 PO (10:08)
[2022-02-17] MEDS ORDERED: SUCR1TA PO (10:08)
[2022-02-17 10:15] VITALS: BP 126/69
== END 2022-02-17 10:22 | disposition home or self-care (01) ==
LOC: M ED 02:01
DX: R07.89 Other chest pain (principal); R11.2 Nausea with vomiting, unspecified; Z90.49 Acquired absence of other specified parts of digestive tract; F17.200 Nicotine dependence, unspecified, uncomplicated; Z79.899 Other long term (current) drug therapy
CPT/HCPCS: 71045; 80048; 80076; 82550; 82553; 83690; 84443; 84702; 85025; 85610; 85730; 87631; 93005; 93041; 94760; 96374; 96375; 99285; J1885; J2405

== ENCOUNTER 2022-03-04 05:45 | Emergency (ER) | payer OTHER ==
[~2022-03-04 05:45] MED LIST changes: +KETO10TAB PO; +OMEP40CA4 PO; +SUCR1TA PO
[2022-03-04 06:12] LABS: BASO # 0.1 10^3/uL (0.0-0.2); BASO % 0.5 % (0.0-1.0); EOS # 0.2 10^3/uL (0.0-0.5); EOS % 1.2 % (0.0-3.0); HEMATOCRIT 39.4 % (36.0-47.0); HEMOGLOBIN 13.2 g/dl (12.0-15.5); LYMPH # 3.3 10^3/uL (1.5-5.0); LYMPH % 24.9 % (24.0-44.0); MEAN CORPUSCULAR HGB CONC 33.5 g/dl (32.0-36.5); MEAN CORPUSCULAR VOLUME 92.5 fl (80.0-96.0); MONO % 7.4 % (2.0-8.0); NEUTROPHILS # 8.7 10^3/uL (1.5-8.5); NEUTROPHILS % 65.5 % (36.0-66.0); PLATELET COUNT, AUTOMATED 329 10^3/uL (150-450); RED BLOOD COUNT 4.26 10^6/uL (4.00-5.40); WHITE BLOOD COUNT 13.3 10^3/uL (4.0-10.0)
[2022-03-04 06:23] LABS: INR 0.88; PROTHROMBIN TIME 12.1 SECONDS (12.5-14.5)
[2022-03-04 06:41] LABS: LIPASE 31 U/L (12-53)
[2022-03-04 06:43] LABS: ALBUMIN 3.7 G/DL (3.2-5.2); ALKALINE PHOSPHATASE 81 U/L (46-116); ALT/SGPT 25 U/L (7.0-40); AST/SGOT 16 U/L (<34); BILIRUBIN,TOTAL 0.2 MG/DL (0.3-1.2); CPK CREATINE PHOSPHOKINASE 118 U/L (34-145); TOTAL PROTEIN 7.1 G/DL (5.7-8.2)
[2022-03-04 06:44] LABS: BILIRUBIN,DIRECT < 0.1 MG/DL (<0.4)
[2022-03-04 06:47] LABS: CK-MB VALUE MASS < 1.0 NG/ML (<3.6); MB/CK RELATIVE INDEX 0.84 (< OR =4)
[2022-03-04] MEDS ORDERED: KETOROLAC 30 MG/ML 1ML VIAL IV ONE (07:30)
[2022-03-04 07:49] VITALS: BP 126/84
== END 2022-03-04 07:55 | disposition home or self-care (01) ==
LOC: EDBD 05:45 → M ED 05:45
DX: S39.012A Strain of muscle, fascia and tendon of lower back, initial encounter (principal); W13.2XXA Fall from, out of or through roof, initial encounter; Y99.0 Civilian activity done for income or pay; Z79.899 Other long term (current) drug therapy
CPT/HCPCS: 71045; 72131; 80047; 80076; 82550; 82553; 83690; 84484; 84702; 85025; 85610; 93005; 93041; 94760; 96374; 99284; J1885

== ENCOUNTER 2022-06-09 15:56 | Emergency (ER) | payer OTHER ==
[~2022-06-09] VITALS: Ht 165.1 cm; Wt 114.5 kg
[2022-06-09 16:41] LABS: BASO # 0.1 10^3/uL (0.0-0.2); BASO % 0.4 % (0.0-1.0); EOS # 0.2 10^3/uL (0.0-0.5); EOS % 1.5 % (0.0-3.0); HEMATOCRIT 39.6 % (36.0-47.0); HEMOGLOBIN 13.1 g/dl (12.0-15.5); LYMPH # 3.3 10^3/uL (1.5-5.0); LYMPH % 28.4 % (24.0-44.0); MEAN CORPUSCULAR HEMOGLOBIN 30.5 pg (27.0-33.0); MEAN CORPUSCULAR HGB CONC 33.1 g/dl (32.0-36.5); MEAN CORPUSCULAR VOLUME 92.1 fl (80.0-96.0); MONO # 0.9 10^3/uL (0.0-0.8); MONO % 7.6 % (2.0-8.0); NEUTROPHILS # 7.2 10^3/uL (1.5-8.5); NEUTROPHILS % 61.8 % (36.0-66.0); PLATELET COUNT, AUTOMATED 340 10^3/uL (150-450); WHITE BLOOD COUNT 11.6 10^3/uL (4.0-10.0)
[2022-06-09 17:04] LABS: LIPASE 30 U/L (12-53)
[2022-06-09 17:06] LABS: ALBUMIN 3.6 G/DL (3.2-5.2); ALKALINE PHOSPHATASE 72 U/L (46-116); ALT/SGPT 31 U/L (7.0-40); AST/SGOT 23 U/L (<34); BILIRUBIN,DIRECT < 0.1 MG/DL (<0.4); BILIRUBIN,TOTAL 0.3 MG/DL (0.3-1.2); BLOOD UREA NITROGEN 8 MG/DL (9-23); CALCIUM LEVEL 8.9 MG/DL (8.5-10.1); CARBON DIOXIDE LEVEL 29 MMOL/L (20-31); CHLORIDE LEVEL 108 MMOL/L (98-107); GLOMERULAR FILTRATION RATE > 60.0 (>60); GLUCOSE, FASTING 88 MG/DL (60-100); POTASSIUM SERUM 3.7 MMOL/L (3.5-5.1); SODIUM LEVEL 140 MMOL/L (136-145); TOTAL PROTEIN 6.8 G/DL (5.7-8.2)
[2022-06-09 17:44] LABS: HCG, SERUM QUALITATIVE NEGATIVE (NEGATIVE)
[2022-06-09 20:02] VITALS: BP 115/77
== END 2022-06-09 20:13 | disposition home or self-care (01) ==
LOC: M ED 15:56
DX: K59.00 Constipation, unspecified (principal); F17.200 Nicotine dependence, unspecified, uncomplicated

== ENCOUNTER 2024-02-15 13:32 | Emergency (ER) | payer OTHER ==
[~2024-02-15] VITALS: Ht 165.1 cm; Wt 123.1 kg
[2024-02-15] MEDS ORDERED: OXYC-517 PO (15:07)
[2024-02-15] MEDS ORDERED: OXYC1CAP2 PO (15:21)
[2024-02-15 15:50] VITALS: BP 119/73; TEMP 96.9; O2SAT 96
== END 2024-02-15 15:54 | disposition home or self-care (01) ==
LOC: EEVIPCON 13:32 → M ED 13:32
DX: L02.11 Cutaneous abscess of neck (principal)

== ENCOUNTER 2024-06-22 19:41 | Emergency (ER) | payer OTHER ==
[~2024-06-22] VITALS: Ht 165.1 cm; Wt 113.6 kg
[~2024-06-22 19:41] MED LIST changes: +OXYC-517 PO; +OXYC1CAP2 PO
[2024-06-22 20:56] LABS: KETONE, URINE AUTO RFX NEGATIVE (NEGATIVE); MUCUS, URINE RFX SMALL (NEGATIVE); NITRITE, URINE AUTO RFX NEGATIVE (NEGATIVE); RBC, URINE AUTO RFX TNTC /HPF (0-3); SQUAM EPITHELIAL CELL UR AURFX 5 /HPF (0-6); YEAST LIKE CELL URINE AUTO RFX MODERATE
[2024-06-22 20:57] LABS: LEUKOCYTE ESTERASE UR AUTO RFX 3+ (NEGATIVE); WBC, URINE AUTO RFX TNTC /HPF (0-3)
[2024-06-22 21:16] LABS: BASO # 0.1 10^3/uL (0.0-0.2); BASO % 0.3 % (0.0-1.0); EOS # 0.2 10^3/uL (0.0-0.5); EOS % 0.8 % (0.0-3.0); HEMATOCRIT 37.8 % (36.0-47.0); HEMOGLOBIN 12.7 g/dl (12.0-15.5); LYMPH # 2.6 10^3/uL (1.5-5.0); LYMPH % 12.6 % (24.0-44.0); MEAN CORPUSCULAR HEMOGLOBIN 29.1 pg (27.0-33.0); MEAN CORPUSCULAR HGB CONC 33.6 g/dl (32.0-36.5); MEAN CORPUSCULAR VOLUME 86.5 fl (80.0-96.0); MONO # 1.3 10^3/uL (0.0-0.8); MONO % 6.2 % (2.0-8.0); NEUTROPHILS # 16.6 10^3/uL (1.5-8.5); NEUTROPHILS % 79.6 % (36.0-66.0); PLATELET COUNT, AUTOMATED 389 10^3/uL (150-450); RED BLOOD COUNT 4.37 10^6/uL (4.00-5.40); WHITE BLOOD COUNT 20.9 10^3/uL (4.0-10.0)
[2024-06-22 21:34] LABS: LIPASE 21 U/L (12-53)
[2024-06-22 21:39] LABS: ALBUMIN 3.5 G/DL (3.2-5.2); ALKALINE PHOSPHATASE 87 U/L (35-104); ALT/SGPT 25 U/L (7.0-40); AST/SGOT 14 U/L (<34); BILIRUBIN,DIRECT 0.1 MG/DL (<0.4); BILIRUBIN,TOTAL 0.3 MG/DL (0.3-1.2); BLOOD UREA NITROGEN < 5 MG/DL (9-23); CARBON DIOXIDE LEVEL 22 MMOL/L (20-31); CHLORIDE LEVEL 108 MMOL/L (98-107); CREATININE FOR GFR 0.67 MG/DL (0.55-1.30); GLOMERULAR FILTRATION RATE > 60.0 (>60); GLUCOSE, FASTING 106 MG/DL (60-100); SODIUM LEVEL 141 MMOL/L (136-145); TOTAL PROTEIN 7.2 G/DL (5.7-8.2)
[2024-06-23 05:58] LABS: HCG, SERUM QUALITATIVE NEGATIVE (NEGATIVE)
[2024-06-23] MEDS: NS (Normal Saline) 0.9% 1,000 ML IV ONE (06:25)
[2024-06-23] MEDS: cefTRIAXone SOD 1 GM in DEXTROSE 5% (D5W) ADV/MINI-BAG 50 ML IV ONE (06:25)
[2024-06-23] MEDS: ONDANSETRON 4MG 2ML VIAL IV ONE (06:25)
[2024-06-23] MEDS: KETOROLAC 30 MG/ML 1ML VIAL IV ONE (06:26)
[2024-06-23] MEDS ORDERED: CEFD1CAP9 PO (07:59)
[2024-06-23 08:14] VITALS: BP 117/58; TEMP 97.7; O2SAT 97
== END 2024-06-23 08:26 | disposition home or self-care (01) ==
LOC: M ED 19:41 → EDBD 19:41 → M ED 06-23 07:19
DX: N10 Acute pyelonephritis (principal); Z90.49 Acquired absence of other specified parts of digestive tract; F17.290 Nicotine dependence, other tobacco product, uncomplicated; R16.0 Hepatomegaly, not elsewhere classified; K76.0 Fatty (change of) liver, not elsewhere classified
CPT/HCPCS: 74176; 80048; 80076; 81001; 83690; 84703; 85025; 87088; 87186; 96365; 96366; 96375; 99284; J0696; J1885; J2405

== ENCOUNTER 2024-12-10 19:42 | Emergency (ER) | payer OTHER ==
[~2024-12-10] VITALS: Ht 165.1 cm; Wt 117.5 kg
[~2024-12-10 19:42] MED LIST changes: +CEFD1CAP9 PO
[2024-12-10 19:46] VITALS: BP 140/71; TEMP 97.2; O2SAT 98
[2024-12-10 20:56] LABS: KETONE, URINE AUTO RFX NEGATIVE (NEGATIVE); MUCUS, URINE RFX SMALL (NEGATIVE); NITRITE, URINE AUTO RFX NEGATIVE (NEGATIVE); RBC, URINE AUTO RFX 108 /HPF (0-3); SQUAM EPITHELIAL CELL UR AURFX 1 /HPF (0-6)
[2024-12-10 20:57] LABS: LEUKOCYTE ESTERASE UR AUTO RFX 3+ (NEGATIVE); WBC, URINE AUTO RFX TNTC /HPF (0-3)
== END 2024-12-10 21:16 | disposition left against medical advice (07) ==
LOC: M ED 19:42
DX: Z53.21 Procedure and treatment not carried out due to patient leaving prior to being seen by health care provider (principal)